=== PATIENT | male | born 1970 | race Two or more races ===

== ENCOUNTER 2019-12-30 06:18 | Inpatient (IN) | payer OTHER ==
[2019-12-30] VITALS (15 sets, daily range): BP systolic 98–139; BP diastolic 54–87
[~2019-12-30] VITALS: Ht 157.5 cm; Wt 68.9 kg
[2019-12-30] MEDS ORDERED: ceFAZolin sod 2 GM in D5W 110 ML IVPB ONE (07:00)
--- NOTE | 2019-12-30 07:28 | Pre-Procedure Note/Attestation ---
Pre-Procedure Note/Attestation Complete Prior to Procedure Planned Procedure: not applicable Procedure Narrative: Anterior cervical discectomy and fusion of C67 artificial disc replacement of C56 Indications for Procedure Pre-Operative Diagnosis: hnp C56,67 Attestation I attest that I discussed the nature of the procedure; its benefits; risks and complications; and alternatives (and the risks and benefits of such alternatives ), prior to the procedure, with the patient (or the patient's legal employee representative). I attest that, if there was a reasonable possibility of needing a blood transfusion, the patient (or the patient's legal employee representative) was given the [facility] standardized written summary, pursuant to the Myles Kacie Blood Safety Act ([place] Health and Safety Code # 1645, as amended). I attest that I re-evaluated the patient just prior to the surgery and that there has been no change in the patient's H&P, except as documented below: Gabriel Xavier MD Dec 30, 2019 07:28
--- NOTE | 2019-12-30 07:29 | Brief Operative Note ---
Immediate Post Operative Note Operative Note Chief Complaint: neck pain and radiculopathy Pre-op Diagnosis: hnp C56,67 Procedure: Anterior cervical discectomy and fusion of C67 artificial disc replacement of C56 Post-op Diagnosis: same as pre-op Findings: consistent w/pre-op dx studies Surgeon: Morenita Clerical Specialist: Enrike Anesthesiologist: lavern Anesthesia: general Specimen: none Complications: none Condition: stable Fluids: ivf Estimated Blood Loss: minimal Drains: none Implant(s) used?: Yes - prodisc c sz5, nuvasive interlock c sz 6 Gabriel Xavier MD Dec 30, 2019 07:29
[2019-12-30] MEDS ORDERED: fentaNYL 100 mcg/2 mL IV ONE (08:08)
[2019-12-30] MEDS ORDERED: Midazolam 2mg/2ml Inj ONE (08:08)
[2019-12-30] MEDS ORDERED: Lidocaine 1% MPF 10mg/ml 5ml ONE (08:12)
[2019-12-30] MEDS ORDERED: Gelfoam Size TOPIC ONE (08:28)
[2019-12-30] MEDS ORDERED: Thrombin 5000 units TOPIC ONE (08:28)
[2019-12-30] MEDS ORDERED: Rocuronium Bromide 50mg/5ml Inj IV ONE (08:29)
[2019-12-30] MEDS ORDERED: Bacitracin 50000 Units Vial ONE (08:29)
[2019-12-30] MEDS ORDERED: NS Irrig 1000ml ONE (09:00)
[2019-12-30] MEDS ORDERED: Metoprolol Tartrate 5mg/5ml Inj ONE (09:00)
[2019-12-30] MEDS ORDERED: Sterile Water Irrig 1000ml IRRIG ONE (09:00)
[2019-12-30] MEDS ORDERED: LR 1000ml ONE (09:00)
[2019-12-30] MEDS ORDERED: Succinylcholine 20mg/ml 10ml vial ONE (09:00)
[2019-12-30] MEDS ORDERED: Neostigmine 1mg/ml 10ml Inj ONE (09:00)
[2019-12-30] MEDS ORDERED: Propofol 1,000mg/ 100ml btl IV ONE (09:00)
[2019-12-30] MEDS ORDERED: Morphine Sulfate 10mg/ml Inj ONE (09:56)
[2019-12-30] MEDS ORDERED: Glycopyrrolate 0.2mg/ml 1ml Vial ONE (09:56)
[2019-12-30] MEDS ORDERED: Sodium Chloride 10ml vial INJ ONE (09:56)
[2019-12-30] MEDS ORDERED: Ketorolac 30mg Inj ONE (09:56)
--- NOTE | 2019-12-30 10:13 | Anethesia Preoperative Eval ---
Anesthesia Pre-op PMH/ROS General Date of Evaluation: Dec 30, 2019 Time of Evaluation: 09:08 Anesthesiologist: Hanna ASA Score: ASA 2 Mallampati Score Class I : Soft palate, uvula, fauces, pillars visible Class II: Soft palate, uvula, fauces visible Class III: Soft palate, base of uvula visible Class IV: Only hard plate visible Mallampati Classification: Class II Surgeon: Morenita Diagnosis: Cervical radiculopathy Surgical Procedure: ACDF Anesthesia History: none Family History: no anesthesia problems Allergies: Coded Allergies: No Known Allergies (Unverified , 12/30/19) Medications: see eMAR Patient NPO?: Yes NPO Date: Dec 29, 2019 NPO Time: 1999 Past Medical History Cardiovascular: Denies: HTN, CAD, FL, valve dz, arrhythmia, other Pulmonary: Denies: asthma, COPD, HAYLIE, other Gastrointestinal/Genitourinary: Reports: GERD - mild; Denies: CRI, ESRD, other Neurologic/Psychiatric: Reports: other - chronic pain; Denies: dementia, CVA, depression/anxiety, TIA Endocrine: Denies: DM, hypothyroidism, steroids, other HEENT: Denies: cataract (L), cataract (R), glaucoma, MORONGO (L), MORONGO (R), other Hematology/Immune: Denies: anemia, DVT, bleeding disorder, other Musculoskeletal/Integumentary: Denies: OA, RA, DJD, DDD, edema, other PMH Narrative: as above PSxH Narrative: Chest mass removal Anesthesia Pre-op Phys. Exam Physician Exam Last Vital Signs Date Time Temp Pulse Resp B/P (MAP) Pulse Ox O2 Delivery O2 Flow Rate FiO2 12/30/19 07:22 Room Air 12/30/19 06:59 98.2 69 18 139/87 (104) 100 Constitutional: NAD Neurologic: CN 2-12 intact Cardiovascular: RRR, no M/R/G Respiratory: CTA Gastrointestinal: S/NT/ND Airway Exam Mallampati Score: Class II MO: full Neck: flexible ROM: full Teeth: intact Dentures: no upper, no lower Anesthesia Pre-op A/P Labs see chart Studies Pre-op Studies: EKG - BNSR Risk Assessment & Plan Assessment: ASA 2 Plan: GA with ETT Status Change Before Surgery: No Pre-Antibiotics Drug: Ancef 1gr. Given Within 1 Hr of Incision: Yes Time Given: 09:40 Leroy Ferreira MD Dec 30, 2019 10:13
[2019-12-30] MEDS ORDERED: LR 1000ml 1,000 ML IVLG SCH (10:14)
[2019-12-30] MEDS ORDERED: Meperidine 25mg/0.5ml Inj (FOR RIGORS ONLY) IV PRN (10:15)
[2019-12-30] MEDS ORDERED: DiphenhydrAMINE 50mg/ml Inj IVP PRN (10:15)
[2019-12-30] MEDS ORDERED: Ketorolac 30mg Inj IV PRN (10:15)
[2019-12-30] MEDS ORDERED: Acetaminophen (Non formulary) 100 ML IV ONE (10:15)
--- NOTE | 2019-12-30 11:52 | Immediate Post-Op Evaluation ---
Immediate Post-Op Evalulation Immediate Post-Op Evalulation Procedure: ACDF C5-C6-C7 Date of Evaluation: Dec 30, 2019 Time of Evaluation: 11:51 IV Fluids: 1200 Blood Products: none Estimated Blood Loss: 50 Urinary Output: 200 Blood Pressure Systolic: 107 Blood Pressure Diastolic: 56 Pulse Rate: 70 Respiratory Rate: 20 O2 Sat by Pulse Oximetry: 99 Temperature (Fahrenheit): 97.4 Pain Score (1-10): 1 Nausea: No Vomiting: No Complications none Patient Status: reacts, patent, extubated, none Hydration Status: adequate Leroy Ferreira MD Dec 30, 2019 11:52
--- NOTE | 2019-12-30 12:30 | NUR ---
AWAKE STRONG HAND GLASS CURVATURE GAUGER AND LEG PUSHES OF BILATERAL HANDS AND FEET. V/S STABLE , DRESSING D/I . SAT 100% ON 6L F/M . BEARABLE POST OP PAIN
--- NOTE | 2019-12-30 13:15 | NUR ---
TRANSFER TO ROOM AWAKE IN STABLE CONDITION . REMAINS ON O2 at 3L N/C SAT 100% DRESSING D/I NO BLEEDING NO HEMATOMA OR SWELLING ON SITE NOTED . ICE PACK APPLIED . NEURO CHECK NO DEFICIT STRONG HAND RESEARCH HYDRAULIC ENGINEER AND LEG PUSHES. V/S STABLE PAIN LEVEL AT 3. BELONGINGS ALL WITH . CALL LIGHT AT REACH BED LOCKED IN LOW POSITION . ENDORSED TO LWEBB RN
--- NOTE | 2019-12-30 13:20 | NUR ---
NURSE NOTES: PATIENT RECEIVED FROM PACU AOX4 WITH FAMILY AT BEDSIDE. BEDSIDE REPORT RECEIVED. HEAD TO TOE ASSESSMENT DONE. ANTERIOR SURGICAL SIT LOGAN C/D/I. NO SWALLOWING DEFICITS NOTED. PATIENT DENIES PAIN. SCDS ON. PT/ FAMILY ORIENTED TO ROOM. BED IN LOW AND LOCKED POSITION. CALL LIGHT WITHIN REACH.WILL CONTINUE TO ASSESS.
[2019-12-30] MEDS ORDERED: HYDROmorphone 1mg/ml Carpuject IVP PRN (14:00)
[2019-12-30] MEDS ORDERED: Milk of Magnesia 30ml Ud ORAL PRN (14:00)
[2019-12-30] MEDS ORDERED: Morphine Sulfate 4mg/ml Inj (IV USE ONLY) IV PRN ×2 (14:00)
[2019-12-30] MEDS ORDERED: Naloxone 0.4mg/ml Inj IVP PRN (14:00)
[2019-12-30] MEDS ORDERED: Morphine Sulfate 2mg/ml Inj(IV/IM USE ONLY) IV PRN (14:00)
[2019-12-30] MEDS ORDERED: HYDROcodone/Acetamin 5/325 tab ORAL PRN (14:00)
[2019-12-30] MEDS ORDERED: Chloraseptic Spray 20mL Bottle ORAL PRN (14:00)
[2019-12-30] MEDS ORDERED: HYDROcodone/Acetamin 7.5/325 tab ORAL PRN ×2 (14:00)
[2019-12-30] MEDS ORDERED: Metoclopramide 10mg/2ml Inj IVP PRN (14:00)
[2019-12-30] MEDS: NS w/KCl 20mEq 1000ml 1,000 ML IV SCH (15:02)
--- NOTE | 2019-12-30 16:57 | NUR ---
CASE MANAGEMENT: INITIAL REVIEW 49 YO M PRESENTED TO HOSPITAL FOR SURGERY SI:HERNIATED NUCLEUS PULPOSUS T 98.2 HR 69 RR 18 B/P 139/87 SATS 100% ON RA LABS: NONE TODAY IS: OR MEDS PATIENT ADMITTED TO MED/SURG 12/30/2019 @ 0729 DCP: HOME PLAN OF CARE: Pre-op Diagnosis: hnp C56,67 Procedure: Anterior cervical discectomy and fusion of C67 artificial disc replacement of C56 Addendum: 12/30/19 at 1701 by Miley Ibrahim CM INTERQUAL MET
[2019-12-30] MEDS: Dexamethasone 4mg/ml vial IVP SCH ×2 (17:31→23:34)
[2019-12-30] MEDS: Docusate 100mg cap ORAL SCH (17:31)
--- NOTE | 2019-12-30 18:29 | NUR ---
NURSE NOTES: PATIENT REMAINS STABLE AND PAIN-FREE. NO DIFFICULTY SWALLOWING. TOLERATING CERVICAL DIET. VSS.AFEBRILE. BED IN LOW AND LOCKED POSITION. SPOUSE AT BEDSIDE.
--- NOTE | 2019-12-30 19:13 | NUR ---
HAND-OFF: Report given to TO POLLARD RN.
[2019-12-30] MEDS: ceFAZolin sod 1 GM in D5W 55 ML IV SCH (20:08)
--- NOTE | 2019-12-30 22:00 | Operative Note - Dictated ---
DATE OF OPERATION: 12/30/2019 SURGEON: Gabriel Xavier MD, Orthopedic Spine Surgeon. TOILET ATTENDANT: ANTONIO Wadsworth. PREOPERATIVE DIAGNOSES: 1. Intractable neck pain. 2. Radiculopathy. 3. Herniation, C5-C6 and C6-C7. 4. Neural foraminal stenosis C5-C6 and C6-C7. 5. Stenosis. POSTOPERATIVE DIAGNOSES: 1. Intractable neck pain. 2. Radiculopathy. 3. Herniation, C5-C6 and C6-C7. 4. Neural foraminal stenosis C5-C6 and C6-C7. 5. Stenosis. PROCEDURE PERFORMED: 1. Anterior cervical discectomy and artificial disc replacement of C5-C6 using a Synthes Prodisc C 5 height arthroplasty. 2. Anterior cervical discectomy and fusion of C6-C7 Nuvasive Interlock C size 6 PEEK cage and three 13 mm screws 1 mL Osteocell allograft bone and local autograft. 3. Use of intraoperative microscope. 4. Motor evoked potential monitoring. 5. Somatosensory evoked potential monitoring. 6. Supervision and interpretation of fluoroscopy. COMPLICATIONS: None. ANESTHESIA: General. ESTIMATED BLOOD LOSS: Less than 100 mL. INDICATIONS FOR SURGERY: This patient is a 49-year-old male who has a history of diagnoses as listed above. As of result of this, the patient sustained intractable neck pain, radiculopathy, herniation, C5-C6 and C6-C7, neural foraminal stenosis C5-C6 and C6-C7, stenosis. We tried a course of conservative management but despite this course there was still a significant component of persistent, recalcitrant neck pain and arm pain. The MRI demonstrated significant neural foraminal compromise secondary to disc herniations at C5-C6 and C6-C7. We had a long discussion with Eleuterio regarding the risks and benefits of surgery. Our discussion included but was not limited to nonoperative management, chiropractic management, another epidural steroid injection as well definitive management in the form of surgery. We recommended an artificial disc replacement of C5-C6 and anterior cervical discectomy and fusion of C6-C7 as final definitive management. We reviewed the risks and benefits of surgery with the patient. Our discussion included a comprehensive review of the clinical issues and the nature of the clinical decision. We reviewed the alternatives, including doing nothing. The patient elected to proceed accordingly with an artificial disc replacement of C5-C6 and anterior cervical discectomy and fusion of C6-C7. We had a long discussion regarding the risks, alternatives and benefits of surgery. Our description of the risks included a discussion in person as well as a signed consent which detailed all pertinent risks from the procedure itself. Briefly, our discussion included but was not limited to infection, bleeding, pseudarthrosis, spinal cord injury, neurovascular injury, dural tear, CSF leak, neuropathy, paralysis, permanent weakness/drop foot/drop arm, paresthesias, blindness, palsy and weakness. The patient understood there may be a need for a revision surgery or additional procedures. Approach-related complications including dysphonia, dysphagia, blindness, permanent vocal cord and neural injury, hematoma, swallowing and breathing difficulty. Medical complications were reviewed including liver, kidney, shock, cardiopulmonary failure, anesthesia complications including , swelling, damage to the musculature, larynx/voice injury or loss, esophagus/throat, trachea, blood vessels and muscles/muscular sprain and lungs/pneumothorax during this surgical procedure; injury to deeper structures may be temporary or permanent. After this review of risks, the patient understood these and elected to proceed. A written and verbal consent was given. We discussed the pros and cons of all the alternatives. We discussed the uncertainties associated with the decision. Afterwards I assessed the patient's understanding and explored their preferences. All questions were answered and no guarantees were given. Medical clearance was obtained prior to surgery. INTRAOPERATIVE FINDINGS: At C5-C6, there was a tear noted in the posterior longitudinal ligament, which was approximately 10 degrees cephalad to caudad nearly vertical. This tear was probed with a Microsect curette. Posterior to the tear, fragments of the disc herniation were encountered, which were carefully resected with a combination of Deckers, Kerrison rongeurs until thorough decompression of the spinal cord, thecal sac, and neural foramina components were obtained. The disc itself was soft. It was not calcified or thrombosed in any fashion. The tear appeared acute. At C6-C7, I encountered a tear in the posterior longitudinal ligament almost vertical cephalad to caudad. This tear was probed with Microsect 1B and 2B curettage. After probing of the tear in the PLL, I noted disc fragments applying pressure on to the spinal cord and thecal sac, which were carefully resected with a combination of Kerrison 1 and Kerrison 2 rongeurs as well as a Nguyen. The disc itself was soft and mobile. There was no dessication noted in the disc itself. DESCRIPTION OF PROCEDURE: Under the benefit of general endotracheal anesthesia and with the assistance of the entire operative team, the patient was moved from the gurney onto the operative table in the supine position. The head was secured and carefully positioned appropriately. Bilateral arms were secured with GelPads and foam and all bony prominences were padded. For the bilateral lower extremities SCD and BISI hose were placed for DVT prophylaxis. A surgical timeout was called which corroborated our planned procedure of artificial disc replacement of an artificial disc replacement of C5-C6 and anterior cervical discectomy and fusion of C6-C7. Preoperative antibiotics were administered within 30 minutes of the incision for antibiotic prophylaxis. Using lateral fluoroscopic radiography, the operative levels were delineated. Next the wound was prepped and draped with Chlorhexidine and sterile drapes. An incision was based on lateral fluoroscopy and we centered our incision at the C5-C6 and C6-C7 interspace and next using a standard Gann-Portillo anterior based approach the incision was taken down through the skin and subcutaneous tissues until the vertebral bodies and their corresponding disc spaces were visualized. A needle was placed into the interspace to confirm placement of the operative interspace and we performed the remainder of procedure under microscopic visualization. Next, using a bipolar and Bovie cautery to ensure meticulous hemostasis, the longus colli was mobilized bilaterally and retractors were placed deep to the longus colli bilaterally to address retraction. Next we turned our attention to the radical anterior discectomy. This was initially performed at C5-C6. First by using a 15 blade scalpel followed by narrow pituitaries and a Microsect 5-B curette was used to denude the endplate of all cartilaginous tissue. Next using a Midas Omiz AM8 drillbit the vertebral endplates were denuded of all residual cartilage in a izvh-me-dwde and layer by layer fashion, and ultimately the posterior uncinate joints bilaterally and posterior osteophytic lips and margins were carefully denuded until clear visualization of the posterior longitudinal ligament was possible. An endplate preparation was performed in the exact same fashion using an intervertebral pediatrician, sequential distraction was obtained throughout the disc space. We saw a tear/rent in the PLL and this was carefully mobilized and dissected using a Microsect 1-B curet until we visualized a discrete disc herniation with compression of the spinal cord as well as neural foramina . This neural foraminal compression was carefully resected using a Kerrison-1 and Kerrison-2 rongeurs until complete decompression of the spinal cord was visualized and complete decompression of the neural foramina and nerve root therein as well as the axilla and lateral margin of the nerve root was visualized and subsequently completely decompressed. The family was notified at one hour intervals throughout the procedure to provide for consistent updates. We next turned our attention towards trialing our implant within the disc space. We initially tried size 5 and this Prodisc Cervical spacer fit well in regards to depth and width. This implant was opened and prepared. Next under direct visualization I confirmed excellent fit in respect to the anterior and posterior vertebral bodies, the uncinate joints and in regards to toggle. Once satisfied with this placement on serial AP and lateral fluoroscopy I turned my attention towards cutting our amanda. These were cut in the bones using a reciprocating drill and afterwards all free fragments of bone were irrigated. Next FloSeal was placed into the interspace, then removed in its entirety and the implant was inserted using fluoroscopic guidance. Next the Synthes Prodisc C size 5 ADR was then carefully advanced and secured into the intervertebral space under direct visualization and with supervision of AP and lateral fluoroscopic views. I next turned my attention towards the radical anterior discectomy. This was then performed at C6-C7. First by using a 15 blade scalpel followed by narrow pituitaries and a micro-sect 5-B curette was used to denude the endplate of all cartilaginous tissue. Next using a [employer] AM8 drillbit the vertebral endplates were denuded of all cartilaginous tissue in a [id number] and layer by layer fashion, and ultimately the posterior uncinate joints bilaterally and posterior osteophytic lips and margins were carefully denuded until wide and thorough visualization of the posterior longitudinal ligament was possible. At this level the endplate preparation was performed in the exact same fashion using an intervertebral pediatrician, sequential distraction was obtained throughout the disc space. We saw a tear/rent in the PLL and this was carefully mobilized and dissected using a micro-set 1-B curette until we visualized an obvious disc herniation with compression of the spinal cord as well as neural foramina. This neural foraminal compression was carefully resected using a Kerrison-1 and Kerrison-2 rongeurs until complete decompression of the spinal cord was visualized and complete decompression of the neural foramina and nerve root therein as well as the axilla and lateral margin of the nerve root was visualized and subsequently completely decompressed. We next turned our attention towards trialing our implant within the disc space. We initially tried size 5 and afterwards size 6 trial from the Nuvasive interlock system at each level, which appeared to be appropriate under AP and lateral fluoroscopy as well as in terms of its height, depth, width and lack of toggle. The PEEK polyetheretherketone interbody cages were then both packed with allograft bone from Osteocel and local autograft bone matrix. Next these were then carefully advanced and secured into their intervertebral spaces under direct visualization and with supervision of AP and lateral fluoroscopic views. We next turned our attention towards plating. Plating was performed at each level with the Nuvasive interlock-C plating system. A total of three screws, size 13 mm in length were inserted and confirmed under AP and lateral fluoroscopy and confirmed to be in excellent position. After a finger sweep we confirmed removal of all sponges. The retractor was removed and we next turned our attention to meticulous hemostasis with FloSeal and bipolar cautery. After the sponge and needle count was again found to be correct with our second count, we next turned our attention to closure. The wound was again copiously irrigated with antibiotic impregnated saline Closure consisted of 4-0 clear nylon for the platysma, and 5-0 clear nylon for the superficial skin. Final skin closure and dressings consisted of Dermabond. Prior to final closure, a final radiograph was obtained which demonstrated the hardware is intact with excellent position throughout. The patient tolerated the procedure well. The patient was carefully extubated after the conclusion of surgery. We discussed the findings of the surgery with the family upon completion of the case. At this point the patient was transferred to the spine floor for further observation. Gabriel Xavier M.D. DR: SAVITA JOB#: [id number] CC: DANIEL
[2019-12-31] VITALS: BP 127/77
[2019-12-31] MEDS: NS w/KCl 20mEq 1000ml 1,000 ML IV SCH (01:35)
[2019-12-31] MEDS: ceFAZolin sod 1 GM in D5W 55 ML IV SCH (03:26)
[2019-12-31 03:32] VITALS: BP 114/67
[2019-12-31] MEDS: Dexamethasone 4mg/ml vial IVP SCH (05:28)
[2019-12-31 08:00] VITALS: BP 116/67
--- NOTE | 2019-12-31 08:11 | NUR ---
NURSE NOTES: Received pt from PIO [facility]. pt was resting comfortably, no c/o pain. is at bedside, call light w/in reach.
[2019-12-31] MEDS: Docusate 100mg cap ORAL SCH (08:29)
[2019-12-31 09:32] VITALS: BP 119/76
--- NOTE | 2019-12-31 09:32 | 48 Hour Post Anesthesia Eval ---
Post Anesthesia Evaluation Procedure: ACDF C5-C6-C7 Date of Evaluation: Dec 31, 2019 Time of Evaluation: 09:31 Blood Pressure Systolic: 119 0: 76 Pulse Rate: 68 Respiratory Rate: 18 Temperature (Fahrenheit): 97.6 O2 Sat by Pulse Oximetry: 98 Airway: patent Nausea: No Vomiting: No Pain Intensity: 2 Hydration Status: adequate Cardiopulmonary Status: stable Mental Status/LOC: patient returned to baseline Follow-up Care/Observations: n/a Post-Anesthesia Complications: none Follow-up care needed: ready to discharge Leroy Ferreira MD Dec 31, 2019 09:32
--- NOTE | 2019-12-31 10:11 | NUR ---
NURSE NOTES: Spoke to regarding discharge and cleared to discharge patient today. Order noted and carried out.
[2019-12-31] MEDS ORDERED: NORCO 10-325 T1 EACH ORAL ×2 (10:19→10:20)
[2019-12-31] MEDS ORDERED: CARISOPRODOL350 MG ORAL (10:21)
--- NOTE | 2019-12-31 11:20 | NUR ---
NURSE NOTES: Discharge the patient in stable condition. d/c instruction of activity and diet and appt was made by Dr. Xavier. pt verbalized understanding d/c today. prescription was given. d/c with via uber.
--- NOTE | 2020-01-01 09:15 | Discharge Summary ---
DATE OF ADMISSION: 12/30/2019 DATE OF DISCHARGE: 12/31/2019 PROCEDURE PERFORMED DURING ADMISSION: Anterior cervical discectomy and fusion of C6-C7 and artificial disc replacement of C5-C6. REASON FOR ADMISSION: Herniated disc in cervical spine of C5-C6 and C6-C7. HOSPITAL COURSE/TREATMENT RENDERED: DISCHARGE PHYSICAL EXAMINATION: 1. The patient was ambulating with and without the assistance of physical therapy. 2. Prior to discharge home, incision was clean and dry with minimal swelling. 3. Follows commands. 4. Alert and oriented. 5. Torres discontinued, voiding. 6. Incentive spirometer at bedside. 7. IVF hep locked. MOTOR: Demonstrates expected postoperative bulk and tone. Moves biceps, triceps, and deltoid musculature on command. Moves hip flexors, quadriceps, tibialis anterior, EHL, gastrocsoleus musculature on command as well. TREATMENT RENDERED: 1. Daily nursing care. 2. Physical Therapy. 3. Occupational Therapy. 4. Intravenous medications. 5. Oral medications. 6. Daily postoperative examinations by Spine surgery team. CONDITION OF PATIENT ON DISCHARGE: The condition on discharge is stable for discharge to home. DISCHARGE INSTRUCTIONS: Our specific instructions relating to physical activity, medications, diet, and followup care are detailed in our standard operative folder and were given to this patient prior to surgery. We will however summarize these briefly as stated below. Regarding physical activity, we would like the patient to limit their flexion, extension, and rotation. We also require a limitation on their bending lifting and twisting. All medication has been called in prior to surgery to their pharmacy of choice. They can resume their regular diet once tolerated. We would like them to shower and limit soaking the wound in a tub/Jacuzzi/the ocean for a period of one month or until the incision is completely healed. We will have them follow up in our office in three weeks time for their regularly scheduled appointment. They understand to call our office tomorrow to schedule the time for their three week followup appointment. The patient will notify us should they experience any increase in the severity of pain, redness/swelling/ or drainage from their incision. Gabriel Xavier M.D. DR: ALEYDA JOB#: [id number] CC:
== END 2019-12-31 11:20 | disposition home or self-care (01) | DRG 473 ==
LOC: SDSOVERFLO 06:27 → 3E 13:20
PROC: 0RG10A0 Fusion of Cervical Vertebral Joint with Interbody Fusion Device, Anterior Approach, Anterior Column, Open Approach (ICD-10-PCS; principal; 2019-12-30 09:00)
PROC: 0RB30ZZ Excision of Cervical Vertebral Disc, Open Approach (ICD-10-PCS; principal; 2019-12-30 09:00)
PROC: 0RR30JZ Replacement of Cervical Vertebral Disc with Synthetic Substitute, Open Approach (ICD-10-PCS; principal; 2019-12-30 09:00)
DX: M50.122 Cervical disc disorder at C5-C6 level with radiculopathy (principal); M48.02 Spinal stenosis, cervical region; V89.2XXS Person injured in unspecified motor-vehicle accident, traffic, sequela
CPT/HCPCS: 36415; 72040; 76000; 86850; 86900; 86901; 87081; 94003; 94150; J2250; J2710